=== PATIENT | male | born 1965 | race Caucasian/White ===

== ENCOUNTER 2016-02-27 18:18 | Emergency (ER) | payer OTHER ==
[2016-02-27] MEDS ORDERED: 0.9 % SODIUM CHLORIDE 1,000 ML IV ONE ×2 (18:46→18:48)
[2016-02-27 18:59] LABS: BASOPHILS % 0.6 (0.0-1.5); EOSINOPHILS % 3.1 % (0.0-6.8); LYMPHOCYTES # 3.5 # k/uL (0.6-4.0); MEAN CORPUSCULAR HEMOGLOBIN 31.1 pg (28.0-34.0); MONOCYTES # 0.4 # k/uL (0.0-0.9); MONOCYTES % 4.8 % (0.0-11.0); NEUTROPHILS # 4.3 # k/uL (1.4-7.7)
--- NOTE | 2016-02-27 19:03 | ED Physician Documentation ---
General Adult - HISTORIAN Historian: patient, other (old records) - HPI Stated Complaint: abdominal pain Chief Complaint: General Adult Additional Information: "Pancreatitis." Epigastric pain that is needle-like began the evening of 02/23. Radiates along left lower anterior rib border. Some nausea and non-bloody non- bilious emesis. No pain meds taken. Seen at [facility] on 02.24 for same. Says he was refused pain meds because he had not followed up with pain specialist. [facility] from 03/02 indicate all normal labs including CBC, UA, CMP, Lipase of . Says he wants morphine and dilaudid. - ROS CONST: no problems. denies: fever - PAST HX Past History: other (Pancreatitis with scope and stents in 2012; yearly bronchitis; anxiety; TMJ; GERD - mo meds. ) Other History: seizure disorder (stopped taking his meds) Allergies/Adverse Reactions: Allergies Allergy/AdvReac Type Severity Reaction Status Date / Time No Known Allergies Allergy Verified 02/27/16 18:23 Home Medications: Ambulatory Orders Medication Instructions Recorded Clonazepam 1 mg PO TID 01/31/16 - SOCIAL HX Smoking History: cigarettes (1 PPD) - FAMILY HX Family History: No - VITAL SIGNS Vital Signs: Vital Signs Temp Pulse Resp BP Pulse Ox 98.4 F 72 18 139/90 100 02/27/16 18:34 02/27/16 18:34 02/27/16 18:34 02/27/16 18:34 02/27/16 18:34 - REVIEWED ASSESSMENTS Nursing Assessment Reviewed: Yes Vitals Reviewed: Yes Progress - Progress Progress: All labs normal. Amylase 44. No pain meds. Explained that no threatening process was present. Upset that he would not be receiving pain meds. Ripping off BP cuff, pulse ox. ED Results Lab/Radiology - Orders Orders: ED Orders Category Date Time Status Place Saline Lock/IV Now Care 02/27/16 18:46 Active AMYLASE Routine Lab 02/27/16 18:51 Received CBC/PLATELET/DIFF Routine Lab 02/27/16 18:51 Received CMP Routine Lab 02/27/16 18:51 Received DRUG SCREEN URINE MEDICAL ONLY Routine Lab 02/27/16 Ordered ETHANOL MEDICAL USE ONLY Stat Lab 02/27/16 Ordered URINALYSIS Routine Lab 02/27/16 Ordered 0.9 % Sodium Chloride [Normal Saline] 1,000 ml Med 02/27/16 18:48 Discontinued IV .STK-MED 0.9 % Sodium Chloride [Normal Saline] 1,000 ml Med 02/27/16 18:46 Active IV Q1H General Adult Physical Exam - PHYSICAL EXAM GENERAL APPEARANCE: no distress (talking on phone) EENT: eye inspection normal, ENT inspection normal, pharynx normal, no signs of dehydration, JUANI NECK: normal inspection, supple RESPIRATORY: no resp distress, breath sounds normal CVS: reg rate & rhythm, heart sounds normal, no murmur ABDOMEN: soft, normal bowel sounds, no distension, tenderness (mild, epigastric area. Is able to tighten abs, "sit-ip" from supine to sitting position w/o discomfoort.) RECTAL: deferred BACK: normal inspection, no CVA tenderness SKIN: warm/dry, normal color EXTREMITIES: normal range of motion (gait and stance), no evidence of injury NEURO: CN's nml as tested, motor nml, sensation nml Discharge Clincal Impression: Chronic abdominal pain Additional Instructions: Follow up with the pain specialist as soon as possible. Home Medications: Ambulatory Orders Clonazepam 1 mg PO TID 01/31/16 Condition: Good Disposition: 01 HOME, SELF-CARE Decision to Admit: NO Decision Time: 19:15
[2016-02-27 19:05] LABS: AMPHETAMINE NEGATIVE ng/mL (<1000); BARBITURATES NEGATIVE ng/mL (<300); CANNABINOIDS NON NEGATIVE ng/mL (<50); COCAINE NEGATIVE ng/mL (<150); METHAMPHETAMINE NEGATIVE ng/mL (<1000); METHYLENEDIOXYMETHAMPHETAMINE NEGATIVE ng/mL (<500)
[2016-02-27 19:08] LABS: eGFR (African) > 60; eGFR (Non-African) > 60
[2016-02-27 21:18] VITALS: BP 138/84
[2016-02-28 05:50] LABS: APPEARANCE,URINE CLEAR (CLEAR); COLOR,URINE YELLOW (YELLOW); OCCULT BLOOD,URINE NEGATIVE (NEGATIVE); UROBILINOGEN URINE 0.2 Eu (0.2-1.0)
== END 2016-02-27 19:20 | disposition home or self-care (01) ==
LOC: ED 18:18
DX: R10.9 Unspecified abdominal pain (principal); G89.29 Other chronic pain
CPT/HCPCS: 80053; 80320; 80377; 82150; 85025; J7030; 80349; 81002; 96360; 99283; G0477; G0480; G0482; S1016

== ENCOUNTER 2016-06-25 03:32 | Emergency (ER) | payer OTHER ==
--- NOTE | 2016-06-25 03:39 | ED Physician Documentation ---
Lower Extremity Problem - HISTORIAN Historian: patient - HPI Stated Complaint: right ankle pain Chief Complaint: Lower Extremity Problem Additional Information: had surgery on his ankle this year. states it is hurting him now. no new trauma. no new injury. he [place] from the bar and ambulated to the ambulance. He was ambulating without difficulty in the exam room. he appears to have been drinking. but is lucent and appropriate Location of Injury: R ankle Onset: other (months ) Timing: still present Duration: constant Recent Injury: No Severity: mild Quality: pain, tenderness. denies: swelling, numbness, tingling Exacerbated By: walking Relieved By: nothing Associated Symptoms: denies: chest pain, shortness of breath, rapid heart rate Further Comments: no - ROS CONST: no problems MS/SKIN/LYMPH: none CVS/RESP: none GI/: none EYES/ENT: none NERUO/PSYCH: denies: headache - PAST HX Past History: none PE Risk Factors: none Surgeries/Procedures: other (plates screws in ankle) Allergies/Adverse Reactions: Allergies Allergy/AdvReac Type Severity Reaction Status Date / Time No Known Allergies Allergy Verified 06/25/16 03:36 Home Medications: Ambulatory Orders Medication Instructions Recorded Clonazepam 1 mg PO TID 01/31/16 - SOCIAL HX Smoking History: cigarettes Alcohol Use: occasionally Drug Use: none - FAMILY HX Family History: none - VITAL SIGNS Vital Signs: Vital Signs Temp Pulse Resp BP Pulse Ox 138/84 02/27/16 21:14 - REVIEWED ASSESSMENTS Nursing Assessment Reviewed: Yes Vitals Reviewed: Yes ED Results Lab/Radiology - Orders Orders: ED Orders Category Date Time Status Ketorolac Tromethamine [Toradol] Med 06/25/16 03:35 Once 60 mg IM NOW ONE methylPREDNISolone SOD SUCC [Solu-MEDROL] Med 06/25/16 03:35 Once 125 mg IM NOW ONE Lower Extremity Problem - EXAM General Appearance: no distress Hips: bilateral hip: non-tender Legs: bilateral: non-tender Knees: bilateral: non-tender Ankle: right: normal inspection (surgical scar over fibula), no evidence of injury, soft tissue tenderness (stated but appearance is not abnormal) Foot: bilateral foot: non-tender Neuro/Tendon: responds to pain EENT: ENT inspection normal RESPIRATORY: no resp distress JOINT: joints nml VASCULAR: no vascular compromise NEURO/PSYCH: oriented X3 SKIN: warm/dry, normal color Discharge Clincal Impression: Ankle pain, chronic Qualifiers: Laterality: right Qualified Code(s): M25.571 - Pain in right ankle and joints of right foot; G89.29 - Other chronic pain Referrals: Primary Doctor,No [Primary Care Provider] - 2 Days Home Medications: Ambulatory Orders Clonazepam 1 mg PO TID 01/31/16 Condition: Good Disposition: 01 HOME, SELF-CARE Decision to Admit: NO Date of Decison to Admit: 06/25/16 Decision Time: 03:43
[2016-06-25 03:41] VITALS: BP 122/78
[2016-06-25] MEDS: methylPREDNISolone SOD SUCC 125 MG/2 ML VIAL IM ONE (03:45)
[2016-06-25] MEDS: KETOROLAC TROMETHAMINE 60 MG/2 ML VIAL IM ONE (03:46)
== END 2016-06-25 04:00 | disposition home or self-care (01) ==
LOC: ED 03:32
DX: M25.571 Pain in right ankle and joints of right foot (principal)
CPT/HCPCS: J1885; J2930; 96372; 99283